=== PATIENT | male | born 1965 | race Caucasian/White ===

== ENCOUNTER 2019-09-22 09:07 | Day surgery (SDC) | payer MEDICARE ==
[~2019-09-22] VITALS: Ht 167.6 cm; Wt 83.9 kg
--- NOTE | ~2019-09-22 | OP ---
PATIENT NAME: RANDY CARDONA MEDICAL RECORD: [id number] :67 LOCATION:[facility] ADMISSION DATE: SURGEON: PALLAVI MARCUS MD DATE OF OPERATION: 09/22/2019 REFERRED BY: Dr. Glover. PREOPERATIVE DIAGNOSIS: End-stage renal disease and dependence on renal dialysis. POSTOPERATIVE DIAGNOSIS: End-stage renal disease and dependence on renal dialysis. OPERATION PERFORMED: Creation of a left proximal radial artery to median antebrachial vein arteriovenous fistula with distal or reversed flow into the forearm was the only venous output or outflow. SURGEON: Pallavi Marcus MD ANESTHESIA: General with an LMA per RN CAMP, after regional nerve block. PREOPERATIVE NOTE: Mr. Cardona is a 54-year-old white male patient from the [facility] on chronic hemodialysis and has been on chronic hemodialysis with a tunneled dialysis catheter for about 6 months. He has been somewhat noncompliant, so far as showing up for dialysis sessions and has not been considered a suitable candidate for peritoneal dialysis and he has been delay having a long-term access in part because he has extensive tattoos on both arms and is concerned about the cosmetic result of surgery. He is brought to the operating room at this time to create AV fistula in the left arm. His preoperative venous mapping studies indicate inadequate cephalic veins in the arm above the antecubital space bilaterally. DESCRIPTION OF PROCEDURE: Under anesthesia in supine position, the patient was prepped and draped in a sterile manner. A [place] drain was used as a proximal venous tourniquet and nitroglycerin ointment was applied to the intact skin of the arm and forearm. I examined the veins of his arteries of his arm with color flow Duplex ultrasound and saw that there was inadequate cephalic vein outflow, really no outflow via the cephalic vein above the antecubital space. The largest vein is a brachial vein which is the dominant draining vein of the forearm and the basilic vein is normal to slightly small caliber. The cephalic vein at the wrist does not reach adequately to the radial artery distally and it was my conclusion that the patient might well require AV graft or a translocated basilic vein fistula in the upper arm. Draining those cosmetic result, I thought we might first try a proximal radial artery, primary fistula. The ultrasound demonstrated a large diagrammer and seamer from the median cubital vein and a fairly adequate antebrachial vein and a large brachial artery with large radial and ulnar arteries with the bifurcation quite easily seen on ultrasound. I made a longitudinal incision and exposed the median antebrachial vein and median cubital vein and the diagrammer and seamer. In fact the venous this dissection was quite extensive as I took pain as not to obstruct flow to the brachial vein which I think is primary drainage. The vessels were ligated with 3-0 Vicryl and divided and also closed with Hemoclips when needed. I mobilized the median cubital vein and eventually divided it proximally in order to provide adequate length to reach over to the proximal radial artery, which just was rather medial OPERATIVE REPORT [id number] RANDY CARDONA or unusually medial in its location in the arm. The brachial artery and its branches were dissected and controlled with Silastic loops. The artery was occluded. The vein was occluded distally with a vascular clamp. The diagrammer and seamer vein was ligated just above the brachial vein and then transected and beveled and prepared for anastomosis. The proximal radial artery was opened as well as up into the distal brachial artery, the arteries were flushed with heparinized saline and the venous anastomosis then performed without any tension and with continuous running 7-0 Prolene. Prior to that, the venous valves were disrupted with coronary artery dilator. When the occluding clamps and loops were released, flow in the fistula was disappointing to nonexistent. This necessitated removing a proximal tie and further lysing the valves within the outflow vein with coronary artery dilators of various sizes. When this was completed and the proximal end of the vein again ligated and the occluding clamps and loops were loosened, excellent continuous pulsatile flow developed in the median antebrachial vein as good as in any other initial primary fistula I have seen. I was very very pleased if not somewhat surprised with this early good result. The wound was irrigated with Ancef/gentamicin solution and without the use of a drain, closed with interrupted inverted 3-0 Vicryl. Skin was closed with running intracuticular 4-0 Stratafix and Dermabond glue and it was further closed and dressed with Maxorb Ag, Tegaderm, and Cavilon skin prep. Doppler examination of the fistula revealed excellent pleasing continuous pulsatile flow. There was good flow in the radial artery at the wrist. Flow in the ulnar artery at the wrist was dampened. The patient was awakened and taken to the recovery room. Blood loss during the procedure was almost none, 1 cc estimated. Sponges, instruments and needles were accounted for. No drain was used and no surgical specimen was submitted for histopathology. PLAN: The patient will be discharged to home today and given a prescription for 14 [place] 5/325 tablets. He can take 1 every 4 hours as needed p.r.n. for pain. He will be made an appointment to return to see me within the next 7-14 days in the office. I would like him to keep the initial operative dressing intact until then, or for as long as possible until he sees me to keep the dressing and/or the underlying Skin dry and clean. TRANSINT:[id number] Voice Confirmation ID: [id number] DOCUMENT ID: [id number] cc: Erin Frias JAMES MD CC: ARTUR GLOVER [id number] DICTATION DATE: 09/22/19 1419 MATHEMATICAL ENGINEERING TECHNICIAN: 09/23/19 0012 [facility] 09/22/[address] [address]
[2019-09-22 08:56] LABS: BASOPHILS 0.3 % (0-2); EOSINOPHILS 5.1 % (0-7); HEMATOCRIT 30.1 % (42.0-54.0); HEMOGLOBIN 10.1 g/dL (13.5-17.5); IMMATURE GRANULOCYTES 0.2 % (0-5); LYMPHOCYTES 25.7 % (15-50); MCH 28.6 pg (26.0-34.0); MCHC 33.6 g/dL (31.0-37.0); MCV 85.3 fL (80.0-100.0); MONOCYTES 8.9 % (2-11); NEUTROPHILS 59.8 % (40-80); PLATELET COUNT 197 10x3/uL (130-400); RBC 3.53 10x6/uL (4.20-6.10); RDW 13.6 % (11.5-14.5)
[2019-09-22 09:05] LABS: ANION GAP 17.2 mmol/L (8-16); CALCIUM 8.5 mg/dL (8.5-10.1); CREATININE - SERUM 11.5 mg/dL (0.6-1.3); INR 1.1 (0.85-1.17); POTASSIUM - SERUM 5.2 mmol/L (3.5-5.1); PROTIME 14.1 SECONDS (11.6-15.0)
[2019-09-22 09:09] VITALS: BP 138/82; Ht 167.6 cm; Wt 83.9 kg
--- NOTE | 2019-09-22 09:43 | NUR ---
PT RESPONDED POSITIVELY TO SUICIDE RISK QUESTION REGARDING FALLING ASLEEP AND NOT WAKING UP, BUT RESPONDED NEGATIVELY TO ALL OTHER QUESTIONS. PT GIVEN SUICIDE PREVENTION RESOURCE HANDOUT.
[2019-09-22] MEDS ORDERED: PHENERGAN25 M1 PO (09:51)
[2019-09-22] MEDS ORDERED: ROXICODONE15 MG PO (09:51)
[2019-09-22] MEDS ORDERED: TENORMIN100 MG PO (09:51)
[2019-09-22] MEDS ORDERED: KLONOPIN1 MG PO (09:52)
--- NOTE | 2019-09-22 13:41 | NUR ---
1335 RECIEVED REPORT FROM TEAGAN DIAMOND RN 1340 NASAL TRUMPET REMOVED. PATIENT AWAKE AND ALERT.
[2019-09-22] MEDS ORDERED: HYDROCODON-ACE1 EAC7 PO (14:02)
--- NOTE | 2019-09-22 14:21 | NUR ---
1409-REC'D FROM RR. AWAKE AND ALERT. VSS. DENIES PAIN. DRESSING TO LEFT ARM CDI. SLING IN PLACE AND ELEVATED. ABLE TO AUSCULATE BRUIT. UNABLE TO PALPATE THRILL. REVIEWED DISCHARGE CRITERIA. VERBALIZED UNDERSTANDING. CL IN EASY REACH.SPOUSE AT BEDSIDE.
--- NOTE | 2019-09-22 16:33 | NUR ---
1430-FULL LIQUID TRAY TO ROOM. DRESSING TO LEFT ARM CDI. SLING IN PLACE AND ELEVATED. VSS. REPORTS NON SURGICAL NEUROPATHY PAIN TO FEET 5/10. CL IN EASY REACH
--- NOTE | 2019-09-22 16:37 | NUR ---
1541-PT REQUEST PAIN MED FOR HIS NEUROPATHY PAIN. HAS A COUPLE HOUR DRIVE HOME. ADMINISTERED NORCO 5/325MG 1 BY MOUTH.
--- NOTE | 2019-09-22 16:39 | NUR ---
1542-REVIEWED POST OPERATIVE INSTRUCTIONS AND TO CALL DR. MARCUS'S OFFICE ON WEDNESDAY TO SCHEDULE A FOLLOW UP FOR NEXT WEEK DUE TO HIS OFFICE BEING CLOSED AT 1PM TODAY. VERBALIZED UNDERSTANDING. REMOVED IV FROM RAC WITH CATH INTACT,DISPOSED INTO SHARPS,COVERED WITH GUAZE,SECURED WITH MEDIPORE TAPE.
--- NOTE | 2019-09-22 16:41 | NUR ---
1605-ESCORTED OUT VIA W/C WITH SPOUSE AWAITING TO DRIVE HOME. DRESSING CDI, SLING IN PLACE, CAP REFILL WNL, SKIN WARM TO TOUCH. PT VERY APPRECIATIVE OF HIS CARE RECEIVED. VERBALIZED "THIS IS THE BEST HOSPITAL EXPERIENCE I'VE EVER HAD"
== END 2019-09-22 16:05 | disposition home or self-care (01) ==
LOC: D.OPS 09:07
PROVIDERS: Surgery; ATTEND Internal Medicine
DX: N18.6 End stage renal disease (principal); Z99.2 Dependence on renal dialysis; E11.9 Type 2 diabetes mellitus without complications; I25.2 Old myocardial infarction

== ENCOUNTER 2019-10-13 06:06 | Day surgery (SDC) | payer MEDICARE ==
[~2019-10-13] VITALS: Ht 167.6 cm; Wt 83.9 kg
[~2019-10-13 06:06] MED LIST: HYDROCODON-ACE1 EAC7 PO; KLONOPIN1 MG PO; PHENERGAN25 M1 PO; ROXICODONE15 MG PO; TENORMIN100 MG PO
[2019-10-13 06:58] LABS: ANION GAP 15.1 mmol/L (8-16); CALCIUM 8.4 mg/dL (8.5-10.1); CARBON DIOXIDE 25.8 mmol/L (21.0-32.0); POTASSIUM - SERUM 4.9 mmol/L (3.5-5.1)
[2019-10-13 07:22] LABS: INR 1.06 (0.85-1.17); PROTIME 13.7 SECONDS (11.6-15.0)
[2019-10-13 07:25] LABS: BASOPHILS 0.8 % (0-2); EOSINOPHILS 1.3 % (0-7); HEMATOCRIT 32.1 % (42.0-54.0); HEMOGLOBIN 10.8 g/dL (13.5-17.5); IMMATURE GRANULOCYTES 0.4 % (0-5); LYMPHOCYTES 22.5 % (15-50); MCH 28.9 pg (26.0-34.0); MCHC 33.6 g/dL (31.0-37.0); MCV 85.8 fL (80.0-100.0); MONOCYTES 18.2 % (2-11); NEUTROPHILS 56.8 % (40-80); PLATELET COUNT 172 10x3/uL (130-400); RBC 3.74 10x6/uL (4.20-6.10); RDW 14.5 % (11.5-14.5); WBC 5.2 10x3/uL (4.8-10.8)
[2019-10-13 07:29] VITALS: Ht 167.6 cm; Wt 83.9 kg
--- NOTE | 2019-10-13 10:54 | NUR ---
1049-REC'D FROM . VSS. REPORTS PAIN 04/11, FACIAL GRIMICING PER FLACC /10. DRESSING TO LEFT ARM CDI. FINGERS WARM TO TOUCH, CAP REFILL WNL. ARM IN SLING. REVIEWED DISCHARGE CRITERIA
--- NOTE | 2019-10-13 11:58 | NUR ---
DISCHARGE INSTRUCTIONS PROVIDED, IV REMOVED DC'D WITH TIP INTACT. FOLLOW UP APPT ON 10/25/19 @ 9857.
--- NOTE | 2019-10-14 11:51 | OP ---
PATIENT NAME: RANDY CARDONA MEDICAL RECORD: [id number] :67 LOCATION:[facility] ADMISSION DATE: SURGEON: PALLAVI MARCUS MD DATE OF OPERATION: 10/13/2019 REFERRED BY: Mayco Glover MD PREOPERATIVE DIAGNOSES: End-stage renal disease, dependence on hemodialysis, thrombosis of recently constructed left upper extremity arteriovenous fistula. POSTOPERATIVE DIAGNOSES: End-stage renal disease, dependence on hemodialysis, thrombosis of recently constructed left upper extremity arteriovenous fistula. ADDITIONAL DIAGNOSIS: History of opioid abuse. OPERATION PERFORMED: Implantation of Artegraft in the left arm between the distal brachial artery and the proximal basilic vein in a rainbow configuration. SURGEON: Pallavi Marcus MD ANESTHESIA: Regional nerve block plus general with LMA per FLAVORING MAKER. PREOPERATIVE NOTE: Mr. Cardona's left arm AV fistula thrombosed before he had his first postop visit. He is brought back to the operating room now to create a long-term access. He has very poor veins and I believe I will end up implanting an AV graft. DESCRIPTION OF PROCEDURE: Under nerve block and general anesthesia, the patient was placed in supine position, prepped and draped in sterile manner. I examined the arm with Duplex ultrasound and color flow with the use of a proximal tourniquet and did not find a suitable vein. The proximal basilic vein appears to be acceptable for a graft and the brachial artery down around the elbow was large. I will go ahead with an Artegraft in the upper arm. I made a longitudinal incision just below the axilla and exposed the basilic vein and controlled it with Silastic loops. I made another longitudinal incision just above the medial epicondyle and exposed the brachial artery and controlled it with Silastic loops. The vein was occluded and opened and flushed with heparinized saline. An Artegraft was properly rinsed and prepared. Then, one end was bevelled and anastomosed end-to-side to the vein with running 6-0 Prolene. The graft and vein were flushed with heparinized saline. The graft was placed in a very superficial subcutaneous tunnel, which arched anteriorly before curving back to the incision over the brachial artery where the graft was again flushed with heparinized saline to demonstrate there were no kinks or twists. The graft was then shortened and bevelled. The artery was occluded with the Silastic loops and opened, it was flushed proximally and distally with heparinized saline after which an anastomosis end of graft to side of artery was performed with running 6-0 Prolene. When that anastomosis was complete and the occluding clamps and loops were released, excellent flow developed immediately in the fistula and both suture lines were quite hemostatic. Doppler examination revealed continuous pulsatile flow in the proximal brachial artery and in the proximal basilic vein. There was a pulsatile, more high resistance type flow present in the distal brachial artery. All this was very satisfactory. The wounds were irrigated with Ancef and gentamicin solution and closed with interrupted inverted 3-0 Vicryl and then running 4-0 Stratafix. The incisions OPERATIVE REPORT [id number] RANDY CARDONA were sealed with and further closed with Dermabond glue and Maxorb AG. They were dressed with Tegaderm and Cavilon skin prep. The patient was awakened and in stable condition and taken to the recovery room. Blood loss was negligible. All sponges, instruments and needles were accounted for. No drain was used and no surgical specimen was submitted for histopathology. PLAN: The patient will be discharged to home today and an appointment scheduled for him to return to see me in my office in 2 weeks. He is to continue the same diet, same medications and same dialysis schedule as previously and I am not prescribing any additional analgesics for the patient as we have discovered that he gets a large amount of oxycodone from a different physician and pharmacy in the [place] or [place] area. I expect the graft should be able to be accessed in approximately 2 weeks and then hopefully we can get his tunneled dialysis catheter removed shortly after that. TRANSINT:[id number] Voice Confirmation ID: [id number] DOCUMENT ID: [id number] cc: [facility] PALLAVI MARCUS MD at 1151 CC: MAYCO GLOVER [id number] DICTATION DATE: 10/13/19 1048 DUST BOX TENDER: 10/13/19 1504 [facility] 10/13/19 [facility] [address] [place] [address]
== END 2019-10-13 12:01 | disposition home or self-care (01) ==
LOC: D.OPS 06:06
PROVIDERS: Surgery; ATTEND Internal Medicine Nephrology
DX: T82.868A Thrombosis due to vascular prosthetic devices, implants and grafts, initial encounter (principal); N18.6 End stage renal disease; Z99.2 Dependence on renal dialysis; F11.11 Opioid abuse, in remission; Z72.0 Tobacco use; I12.0 Hypertensive chronic kidney disease with stage 5 chronic kidney disease or end stage renal disease; E11.22 Type 2 diabetes mellitus with diabetic chronic kidney disease